=== PATIENT | female | born 1960 | race Caucasian/White ===

== ENCOUNTER → 2021-06-24 | Outpatient (CLI) | payer OTHER | LOC: NM 08:39 | DX: R10.84 Generalized abdominal pain (principal) | CPT/HCPCS: 78226; A9537 ==

== ENCOUNTER → 2021-10-07 | Outpatient (CLI) | payer OTHER | LOC: NM 10:00 | DX: R07.9 Chest pain, unspecified (principal); R94.31 Abnormal electrocardiogram [ECG] [EKG]; R06.02 Shortness of breath | CPT/HCPCS: 78452; 93017; A9502; J2785 ==